=== PATIENT | male | born 1975 | race Caucasian/White ===

== ENCOUNTER 2018-02-05 19:59 | Emergency (ER) | payer OTHER | END 2018-02-05 23:26 | disposition home or self-care (01) | LOC: M ED 19:59 | DX: S39.011A Strain of muscle, fascia and tendon of abdomen, initial encounter (principal); X58.XXXA Exposure to other specified factors, initial encounter; Y92.89 Other specified places as the place of occurrence of the external cause; R58 Hemorrhage, not elsewhere classified | CPT/HCPCS: 76870 ==